=== PATIENT | female | born 1955 | race Two or more races ===

== ENCOUNTER 2019-06-27 23:28 | Emergency (ER) | payer BC ==
[2019-06-27] MEDS ORDERED: Lidocaine 1% with EPINEPHrine 1:100,000 50 ML MDV INFILT ONE (23:37)
[2019-06-27] MEDS ORDERED: Silver Nitrate Applicator Each ONE (23:51)
[2019-06-28] MEDS ORDERED: Silver Nitrate Applicator Each TOP ONE (00:15)
--- NOTE | 2019-06-28 00:15 | EDM.PDOC ---
ED HPI GENERAL MEDICAL PROBLEM - General Chief Complaint: ENT Problem Stated Complaint: MOUTH BLEEDING HEAVILY Time Seen by Provider: 06/27/19 23:45 Source of Information: Reports: Patient, Family History Limitations: Reports: Language Barrier (Speaks only Burkinan) - History of Present Illness INITIAL COMMENTS - FREE TEXT/NARRATIVE: 63-year-old female with brisk hemorrhaging from the hard palate of the mouth after a dental procedure earlier today. History was obtained through an certified court interpreter. She was bleeding slowly throughout the day, but approximately one hour before coming in the bleeding became very brisk. Location: Reports: Other (Hard palate) Associated Symptoms: Reports: No Other Symptoms denies pain Pain Score (Numeric/FACES): 0 - Related Data Allergies Allergy/AdvReac Type Severity Reaction Status Date / Time No Known Allergies Allergy Verified 06/27/19 23:45 Home Meds: Home Meds Dulaglutide [Trulicity] 0.75 mg SQ WEEKLY 04/26/19 [History] [place] Carbonate 300 mg PO DAILY 04/26/19 [History] [place] Carbonate 600 mg PO QPM 04/26/19 [History] [place]-3 Fatty Acids/Fish Oil [Fish Oil 1,200 mg Softgel] 1,200 mg PO DAILY 04/26 [History] atorvaSTATin [Lipitor] 10 mg PO BEDTIME 04/26/19 [History] glipiZIDE [Glucotrol] 10 mg PO BID 04/26/19 [History] metFORMIN [Glucophage] 1,000 mg PO BID 04/26/19 [History] risperiDONE 2 mg PO DAILY 04/26/19 [History] Past Medical History HEENT History: Reports: 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: Reports: Diabetes, Type II - Past Surgical History HEENT Surgical History: Reports: Oral Surgery Female Surgical History: Reports: Section Social & Family History - Tobacco Use Smoking Status *Q: Never Smoker - Caffeine Use Caffeine Use: Reports: Coffee, Soda - Recreational Drug Use Recreational Drug Use: No ED ROS ENT - Review of Systems Review Of Systems: See Below Constitutional: Denies: Fever Respiratory: Denies: Shortness of Breath GI/Abdominal: Reports: Nausea (Some nausea from swallowing blood) Skin: Reports: No Symptoms ED EXAM, ENT - Physical Exam Exam: See Below Exam Limited By: No Limitations General Appearance: Alert, No Apparent Distress Mouth/Throat: Other (There is a surgical area on the right hard palate near the molars as well as some extracted molar. There is a brisk stream of hemorrhage coming from the open area.) Respiratory/Chest: No Respiratory Distress Course - Vital Signs Last Recorded V/S: Last Vital Signs Temp 98.0 F 06/28/19 00:11 Pulse 108 H 06/28/19 00:11 Resp 17 06/28/19 00:11 BP 147/70 H 06/28/19 00:11 Pulse Ox 97 06/28/19 00:11 - Orders/Labs/Meds Meds: Medications Discontinued Medications Generic Name Dose Route Start Last Admin Trade Name Fretony PRN Reason Stop Dose Admin Lidocaine/Epinephrine 30 ml 06/27/19 23:37 06/28/19 00:12 Xylocaine 1% With Epinephrine 1:100,000 INFILT 06/27/19 23:38 30 ml ONETIME ONE Administration Silver Nitrate Confirm 06/27/19 23:51 06/28/19 00:28 Silver Nitrate Administered 06/27/19 23:52 Not Given Dose 1 each .ROUTE .STK-MED ONE Silver Nitrate 2 each 06/28/19 00:15 06/28/19 00:28 Silver Nitrate TOP 06/28/19 00:16 2 each ONETIME ONE Administration - Re-Assessments/Exams Free Text/Narrative Re-Assessment/Exam: 06/28/19 00:12 1% lidocaine with epinephrine was infiltrated around the area of bleeding. The area was then packed with ice chips and gauze for 5 minutes. Silver nitrate was used to cauterize the surgical excised area, and 2 small circles of Surgicel were applied over the site. Additional compresses with ice were applied and the bleeding was controlled. Departure - Departure Time of Disposition: 00:27 Disposition: Home, Self-Care 01 Clinical Impression: Postoperative bleeding from mouth - Discharge Information Instructions: Bleeding After Dental Procedures Referrals: PCP,None [Primary Care Provider] - Forms: ED Department Discharge Care Plan Goals: Mantenga compresas fras en el jeimy si algn sangrado comienza a repetirse. Trate de no irritar el jeimy y considere volver a consultar con el dentista anay. Regrese si el sangrado recurre y no se puede detener Keep cool compresses on the area if any bleeding starts to recur. Try not to irritate the area, and consider rechecking with the dentist tomorrow. Return if bleeding recurs and can't be stopped
== END 2019-06-28 00:27 | disposition home or self-care (01) ==
LOC: JP.ED 23:28
DX: K91.840 Postprocedural hemorrhage of a digestive system organ or structure following a digestive system procedure (principal); E11.9 Type 2 diabetes mellitus without complications; Z79.84 Long term (current) use of oral hypoglycemic drugs
CPT/HCPCS: 42180; 99283-25

== ENCOUNTER 2021-03-07 22:06 | Emergency (ER) | payer BC ==
[2021-03-07] MEDS ORDERED: Insulin Regular, Human 100 Units/ML 3 ML Vial SUBCUT ONE (22:58)
--- NOTE | 2021-03-07 23:10 | EDM.PDOC ---
ED HPI GENERAL MEDICAL PROBLEM - General Stated Complaint: COVID POSITIVE, HIGH BLOOD SUGARS Time Seen by Provider: 03/07/21 22:45 Source of Information: Reports: Patient History Limitations: Reports: No Limitations (Patient does not speak Danish but an service dismantler was available) - History of Present Illness INITIAL COMMENTS - FREE TEXT/NARRATIVE: 65-year-old female who was diagnosed with Covid and pneumonia within the past 5 days, is on 2 antibiotics and 40 mg prednisone daily. She has had prednisone for 2 days, she feels fine, denies significant cough or shortness of breath but tonight she checked her glucose and it was over 400 which scared her so she came in. She is not on insulin, she has type 2 diabetes with Metformin and glipizide. No fevers or chills, she also received the monoclonal antibody therapy. Onset: Unknown/Unsure Associated Symptoms: Reports: Malaise. Denies: Fever/Chills, Headaches, Loss of Appetite, Nausea/Vomiting, Shortness of Breath - Related Data Allergies Allergy/AdvReac Type Severity Reaction Status Date / Time No Known Allergies Allergy Verified 03/07/21 22:54 Home Meds: Home Meds Dulaglutide [Trulicity] 0.75 mg SQ WEEKLY 04/26/19 [History] [place] Carbonate 300 mg PO DAILY 04/26/19 [History] [place] Carbonate 600 mg PO QPM 04/26/19 [History] [place]-3 Fatty Acids/Fish Oil [Fish Oil 1,200 mg Softgel] 1,200 mg PO DAILY 04/26/19 [History] atorvaSTATin [Lipitor] 10 mg PO BEDTIME 04/26/19 [History] glipiZIDE [Glucotrol] 10 mg PO BID 04/26/19 [History] metFORMIN [Glucophage] 1,000 mg PO BID 04/26/19 [History] risperiDONE 2 mg PO DAILY 04/26/19 [History] Amoxicillin/Potassium Clav [Amox-Clav 875-125 mg Tablet] 1 tab PO DAILY 03/07/21 [History] Azithromycin 500 mg PO ASDIRECTED 03/07/21 [History] Past Medical History 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 Denies: Fever, Chills HEENT: Reports: No Symptoms Respiratory: Denies: Shortness of Breath Cardiovascular: Denies: Chest Pain GI/Abdominal: Denies: Nausea, Vomiting ED EXAM, GENERAL - Physical Exam Exam: See Below Exam Limited By: No Limitations General Appearance: Alert, No Apparent Distress Head: Atraumatic Respiratory/Chest: No Respiratory Distress, Lungs Clear Cardiovascular: Regular Rate, Rhythm. No: Tachycardia Neurological: Alert, Oriented Psychiatric: Normal Affect, Normal Mood Skin Exam: Warm, Dry Course - Vital Signs Last Recorded V/S: Last Vital Signs Temp 98.1 F 03/07/21 23:17 Pulse 94 03/07/21 23:17 Resp 16 03/07/21 23:17 BP 150/87 H 03/07/21 23:17 Pulse Ox 96 03/07/21 23:17 - Orders/Labs/Meds Meds: Medications Discontinued Medications Generic Name Dose Route Start Last Admin Trade Name Cris PRN Reason Stop Dose Admin Insulin Human Regular 8 unit 03/07/21 22:58 03/07/21 23:10 Insulin Regular, Human 100 Units/Ml 3 Ml Vial SUBCUT 03/07/21 22:59 8 units ONETIME ONE Administration - Re-Assessments/Exams Free Text/Narrative Re-Assessment/Exam: 03/07/21 23:11 Patient's medications were reviewed, she should continue the antibiotic but I think she can hold the prednisone. Her lungs are completely clear, she has no wheezing or inflammation and I think the hyperglycemia it is causing is not worth the benefit. She was given 8 units of subcutaneous insulin, reassured, and will continue her medications except the prednisone. Departure - Departure Time of Disposition: 23:33 Disposition: Home, Self-Care 01 Clinical Impression: Hyperglycemia, COVID-19 - Discharge Information Instructions: Hyperglycemia, [id number] Referrals: PCP,None [Primary Care Provider] - Forms: ED Department Discharge Care Plan Goals: Continue your current medications except stop the prednisone. Return or recheck if worsening or concerns. Sepsis Event Note (ED) - Focused Exam Vital Signs: Vital Signs Temp Pulse Resp BP Pulse Ox 03/07/21 23:17 98.1 F 94 16 150/87 H 96
== END 2021-03-07 23:33 | disposition home or self-care (01) ==
LOC: JP.ED 22:06
DX: U07.1 COVID-19 (principal); E11.65 Type 2 diabetes mellitus with hyperglycemia; Z79.84 Long term (current) use of oral hypoglycemic drugs; Z79.899 Other long term (current) drug therapy
CPT/HCPCS: 99283; 99284; J1815